=== PATIENT | female | born 1970 | race Caucasian/White ===

== ENCOUNTER 2022-07-02 11:26 | Outpatient (CLI) | payer BC, SELFPAY ==
[2022-07-24 10:44] LABS: Bacterial Vaginosis by TMA Negative; Candida glabrata by TMA Negative; Candida species by TMA Negative
[2022-07-24 10:45] LABS: Trichomonas vaginalis by TMA Negative
== END 2022-07-02 11:27 | disposition home or self-care (01) ==
LOC: NFLDREF 11:28
PROVIDERS: Visit Provider Registered Nurse
DX: N89.8 Other specified noninflammatory disorders of vagina (principal)
CPT/HCPCS: 81513; 87480; 87481; 87510; 87660; 87661

== ENCOUNTER 2022-08-12 18:35 | Outpatient (CLI) | payer BC, SELFPAY | END 2022-08-12 18:36 | disposition home or self-care (01) | PROVIDERS: Visit Provider Registered Nurse | DX: N94.819 Vulvodynia, unspecified (principal) | CPT/HCPCS: 87086; 87109 ==

== ENCOUNTER 2022-08-13 16:02 | Outpatient (CLI) | payer BC, SELFPAY ==
[2022-08-13 18:45] LABS: Chlamydia DNA Amplified* NOT DETECTED (No Detected); GC DNA Amplified* NOT DETECTED (No Detected)
== END 2022-08-13 16:03 | disposition home or self-care (01) ==
LOC: NFLDREF 16:02
PROVIDERS: Visit Provider Registered Nurse
DX: N94.818 Other vulvodynia (principal)
CPT/HCPCS: 87491; 87591

== ENCOUNTER 2022-09-30 11:03 | Outpatient (CLI) | payer BC, SELFPAY | END 2022-09-30 11:04 | disposition home or self-care (01) | PROVIDERS: PCP Family Medicine; Visit Provider Family Medicine | DX: M54.16 Radiculopathy, lumbar region (principal); M51.36 Other intervertebral disc degeneration, lumbar region | CPT/HCPCS: 62323; J0702; Q9966 ==

== ENCOUNTER 2023-11-24 07:30 | Outpatient (RCR) | payer BC, SELFPAY | END 2024-03-23 23:59 | disposition home or self-care (01) | PROVIDERS: PCP Family Medicine; Visit Provider Family Medicine | DX: M47.816 Spondylosis without myelopathy or radiculopathy, lumbar region (principal); M51.36 Other intervertebral disc degeneration, lumbar region; M54.16 Radiculopathy, lumbar region; M54.12 Radiculopathy, cervical region; M77.8 Other enthesopathies, not elsewhere classified; M54.50 Low back pain, unspecified; M62.81 Muscle weakness (generalized); M25.512 Pain in left shoulder; R27.8 Other lack of coordination; N94.10 Unspecified dyspareunia; R29.3 Abnormal posture; R10.2 Pelvic and perineal pain; R32 Unspecified urinary incontinence; M62.89 Other specified disorders of muscle; Z51.89 Encounter for other specified aftercare | CPT/HCPCS: 97110; 97112; 97140; 97161; 97162; 97164; 97535 ==

== ENCOUNTER 2024-11-29 07:30 | Outpatient (RCR) | payer BC, SELFPAY ==
--- OUTSIDE RECORDS SUMMARY | 2024-07-07 06:23 | XMS_ITS ---
Author Organization [facility] Address [address] [place] [address] Care Team Providers Care Scrap Crusher Name Role Phone None, No PCP Primary Care Provider Ant Hernandezbeto Harris Unavailable [phone] Results Component Value Reference Range Notes TESTOSTERONE, TOTAL, LC/MS/M S Reviewed date:05/26/2024 10:56:26 AM Interpretation: Performing Lab:[id number] [address], [address] Edil Lund MD,PhD Notes/Report: 0 TESTOSTERONE, TOTAL, MS 444 2-45 ng/dL For additional information, please refer to https://[email or web address].com/faq/TotalTestosteroneLCMS MS (This link is being provided for informational/educational purposes only.) (Note) This test was developed and its analytical performance characteristics have been determined by [employer]. It has not been cleared or approved by the FDA. This assay has been validated pursuant to the CLIA regulations and is used for clinical purposes. [facility] [address] [facility] [address] [facility] [id number] Edil Lund MD, PhD REASON FOR VISIT HRT Labs Medications Medication SIG (Take, Route, Frequency, Duration) Notes Start Date End Date Status Testosterone Cream 40mg/gm apply 1 click ( 10mg/dose) Unknown traMADol HCl 50 MG 1 tablet as needed Orally Once a day Unknown Naproxen 250 MG 1 tablet with food o r milk Orally Twice a day Unknown Magnesium 300 MG 1 capsule with a melony l Orally Once a day Unknown Multivitamin Adult - 1 tablet Orally Onc e a day Unknown Yuvafem 10 MCG 1 tablet Vaginal Two times a Week for 90 days 04/22/2024 Active Encounters Encounter Location Date Provider Diagnosis [facility] [address] [place] [address] 05/20/2024 Harris Feliz Menopausal and femal e climacteric states N95.1 Assessments Encounter Date Diagnosis (ICD Code) Assessment Notes Treatment Notes Treatment Clinical Notes Section Notes 05/20/2024 Menopausal and female climacteric states (ICD-10 - N95.1) Plan Of Treatment No Information Progress Notes * Celina KIMBLEiDOB: [birth year] (53 yo F)Acc No.[id number]:05/20/2024 Patient: Clarisse HARRIS Provider: DON Huntley :1970 A ge:53 Y S ex:Female Date:05/20/2024 Address:[address] [place] [address] [id number] Pcp:No PCP None Subjective: * Chief Complaints: * 1 . HRT Labs. * Medical History: * Medications: T aking Yuvafem 10 MCG Tablet 1 tablet Vaginal Two times a Week , Unknown Testosterone Cream , Notes to Pharmacist: 40mg/gm apply 1 click ( 10mg/dose), Unknown traMADol HCl 50 MG Tablet 1 tablet as needed Orally Once a day , Unknown Naproxen 250 MG Tablet 1 tablet with food or milk Orally Twice a day , Unknown Magnesium 300 MG Capsule 1 capsule with a meal Orally Once a day , Unknown Multivitamin Adult - Tablet 1 tablet Orally Once a day Objective: * Vitals: Assessment: * Assessment: 1. M enopausal and female climacteric states - N95.1 (Primary) Plan: * Treatment: Value Reference Range T ESTOSTERONE, TOTAL, 444 H 2-45 - ng/dL * Your total testosterone leve l is HIGH and above the range we desire to have you at on therapy (70-150). This is likely causing the symptoms you had called in about. I will call you today so we can discuss your results and options for therapy. Harris Feliz 05/26/2024 10:56:23 AM CDT > * Procedure Codes: 8 4403 ASSAY OF TOTAL TESTOSTERONE, Modifiers: 90 , 57052 VENIPUNCT, ROUTINE* * Images: Billing Information: * Visit Code: * Procedure Codes: 24183 ASSAY OF TOTAL TESTOSTERONE. Modifiers: 90 07848 VENIPUNCT, ROUTINE*. * Sign off status: Completed Addendum: * true * Provider: DON Huntley Date: Generated for Gabriella Shields/León on: 09/07/2023 06:23 AM [employer]PER[employer]OR [employer]
--- OUTSIDE RECORDS SUMMARY | 2024-07-07 06:23 | XMS_ITS ---
Author Organization [facility] Address [address] [place] [address] Care Team Providers Care Track Leader Name Role Phone None, No PCP Primary Care Provider Harris Burton Unavailable [phone] Allergies Allergen (clinical drug ingredient) Drug/Non Drug Allergy documented on EMR Reaction Allergy Type Onset Date Status Effexor Unknown Drug Allergy Active REASON FOR VISIT HRT f/u, LABS: testosterone 444, How are you feeling?, KDS,VP SECURITIES Medications Medication SIG (Take, Route, Frequency, Duration) Notes Start Date End Date Status Multivitamin Adult - 1 tablet Orally Onc e a day Active Yuvafem 10 MCG 1 tablet Vaginal Two times a Week for 90 days 04/22/2024 Active traMADol HCl 50 MG 1 tablet as needed Orally Once a day Active Testosterone Cream 40mg/gm apply 1 click ( 10mg/dose) Active Naproxen 250 MG 1 tablet with food o r milk Orally Twice a day Active Magnesium 300 MG 1 capsule with a melony l Orally Once a day Active Social History Tobacco Use: Social History Observation Description Date Details (start date - stop date) Never Smoker NA - NA Tobacco Use/Smoking Question Answer Notes Are you a nonsmoker Alcohol Screen (Audit-C) Question Answer Notes Did you have a drink contain ing alcohol in the past year? Yes How often did you have a dri nk containing alcohol in the past year? 2 to 3 times a week (3 points) How many drinks did you have on a typical day when you were drinking in the past year? 1 or 2 drinks (0 point) How often did you have 6 or more drinks on one occasion in the past year? Never (0 point) Points 3 Interpretation Positive Problems Problem Type SNOMED Code ICD Code Onset Dates Problem Status W/U Status Risk Notes Problem Pain in female genitalia on intercourse (34636193) Dyspareunia in female (N94.10) Active confirmed Encounters Encounter Location Date Provider Diagnosis [facility] [address] [place] [address] 05/30/2024 Harris Feliz Menopausal and femal e climacteric states N95.1 ; Fatigue R53.83 ; Vaginal atrophy N95.2 ; Dyspareunia in female N94.10 and Elevated testosterone level in female R79.89 Assessments Encounter Date Diagnosis (ICD Code) Assessment Notes Treatment Notes Treatment Clinical Notes Section Notes 05/30/2024 Menopausal and female climacteric states (ICD-10 - N95.1) HRT with concerns for high testosterone with labial application of Tcream. Plans to go back to 10mg/day behind knee application with Tcream. Desires to continue on current therapies at this time Will call when refill needed of Tcream and what dose she desires Risks vs. benefits of ongoing HRT reviewed today. Contraindications to continue therapy reviewed including breast cancer, VTE, CVA, and/or NM. Mammogram annually is recommended for ongoing therapy. Mammogram up to date Plan repeat labs (estradiol, FSH, total testosterone) and HRT follow up in 6 months, sooner if any concerns 05/30/2024 Fatigue (ICD-10 - R53.83) 05/30/2024 Vaginal atrophy (ICD-10 - N95.2) Plan Yuvafem tabs once weekly due to breast pain with twice weekly insertions . 05/30/2024 Dyspareunia in female (ICD-10 - N94.10) 05/30/2024 Elevated testosterone level in female (ICD-10 - R79.89) HRT labs reviewed. High testosterone associated with labial application of Tcream 10mg/day. Desires to go back to using behind her knee daily in AM. Has left over therapy from previous prescription. Aware 2 clicks today needed with 20mg/gm concentration tube and 1 click with 40mg/gm concentration tube. She wants to continue on this and see how she does. She can let me know when she is needing a refill and what dose she feels best with 05/30/2024 Other This visit was conducted with the use of audio and video telecommunications system that permits real time communication between the patient and provider. Patient consent for virtual visit was obtained. Originating site: [facility] location Distant site: pt in parked car Start time: 1445 Stop time: 1507 31 min. spent in chart prep, reviewing previous notes, lab results, current HRT therapies, answering questions/concerns, and discussing ongiong therapy options, writing orders, along with time spent documenting today's visit note. Plan Of Treatment Treatment Notes Assessment Notes Menopausal and female climacteric states HRT with concerns for high testosterone with labial application of Tcream. Plans to go back to 10mg/day behind knee application with Tcream. Desires to continue on current therapies at this time Will call when refill needed of Tcream and what dose she desires Risks vs. benefits of ongoing HRT reviewed today. Contraindications to continue therapy reviewed including breast cancer, VTE, CVA, and/or NM. Mammogram annually is recommended for ongoing therapy. Mammogram up to date Plan repeat labs (estradiol, FSH, total testosterone) and HRT follow up in 6 months, sooner if any concerns Vaginal atrophy Plan Yuvafem tabs once weekly due to breast pain with twice weekly insertions . Elevated testosterone level in female HRT labs reviewed. High testosterone associated with labial application of Tcream 10mg/day. Desires to go back to using behind her knee daily in AM. Has left over therapy from previous prescription. Aware 2 clicks today needed with 20mg/gm concentration tube and 1 click with 40mg/gm concentration tube. She wants to continue on this and see how she does. She can let me know when she is needing a refill and what dose she feels best with Other This visit was conducted with the use of audio and video telecommunications system that permits real time communication between the patient and provider. Patient consent for virtual visit was obtained. Originating site: [facility] location Distant site: pt in parked car Start time: 1445 Stop time: 1507 31 min. spent in chart prep, reviewing previous notes, lab results, current HRT therapies, answering questions/concerns, and discussing ongiong therapy options, writing orders, along with time spent documenting today's visit note. Next Appt Details Follow Up: 6 Months, Reason: HRT follow up Progress Notes * Carmencita KIMBLE: [birth year] (53 yo F)Acc No.[id number]:05/30/2024 Patient: Clarisse HARRIS Provider: DON Huntley :1970 A ge:53 Y S ex:Female Date:05/30/2024 Address:[address] [place], [place] [address]-[id number] Pcp:No PCP None Subjective: * Chief Complaints: * 1 . HRT f/u. 2. LABS: testosterone 444. 3. How are you feeling?. 4. KDS,VP SECURITIES. * HPI: G eneral: Patient presents today for a telemedicine visit. Patient gives permission to be treated with (tele/audio communication) or (by telephone.). * General: Clarisse is a 53 year old female here today for a HRT follow up. She is currently using the following HRT therapies: transdermal compounded testosterone cream 10mg/0.25gm/1clicks/day. Instructed to apply between labia at last visit. Yuvafem 10mcg vaginal tablets twice weekly Primary symptoms for initiation of HRT: thinning hair, brittle nails, low energy, sensation of cold, weight gain, low libido, constipation, irritability/mood swings, swollen ankles, unexplained tingling/numbness, body aches, plantar fasciitis, waking unrefreshed, sleeping problems, and difficulty concentrating/memory loss. At this time she reports labial application of testosterone cream caused strong libido, clitoral enlargement that was uncomfortable, irritability and agitation so she stopped therapy. Took about 2 days before sensation decreased. Would prefer to go back to using Tcream to back of knee. Has 20mg/gm concentration and 40mg/gm concentration of Tcream. Did note bothersome breast pain and swelling with twice weekly Yuvafem, but did noticed less discomfort during intercourse. Has opted to use once weekly ideally a few days before she likely will be sexually active. Last Mammogram: 12/17/23, negative Last Pap: 0 09/10/2023 neg/neg hrHPV Contraception: Bilateral Tubal Ligation PMH: reviewed, no concerns or contraindications for continuing HRT identified. History notable for migraines, depression/anxiety, lumbago, vulvodynia (managed with pelvic floor PT and nerve injection in her back). * ROS: A ll Other Systems: Review of Systems (ROS) [facility] for details. * Medical History: M igraines, Depression/anxiety, Lumbago, Vulvodynia. 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 B irth Control: B ilateral Tubal Ligation. S exual Activity C urrently sexually active, . S exually Tranmitted Disease (STD) N one. A bnormal Pap Smear N ever Had One. * OB History: n umber of 2 . G PAL: G [id number]. M iscarriage(s) 1 . T otal living children 1 . P regnancy # 1: 1 997, Miscarriage (SAB). P regnancy # 2: 2 004, male, at 37 weeks, no complications. * Surgical History: b ilateral tubal ligation , uterine ablation . * Hospitalization/Major Diagno stic Procedure: c hild x 1 . * Family History: Diabetes - grandmother (unspecified) Stroke - grandmother (unspecified) Heart Attack - maternal and paternal grandfather. * Social History: T obacco Use: T obacco Use/Smoking A re you a n onsmoker D rugs/Alcohol: D rugs H ave you used drugs other than those for medical reasons in the past 12 months? N o Alcohol Screen (Audit-C) D id you have a drink containing alcohol in the past year? Y es H ow often did you have a drink containing alcohol in the past year? 2 to 3 times a week (3 points) H ow many drinks did you have on a typical day when you were drinking in the past year? 1 or 2 drinks (0 point) H ow often did you have 6 or more drinks on one occasion in the past year? N ever (0 point) P oints 3 I nterpretation P ositive Caffeine I ntake: 1 -2 cups per day Do you smoke marijuana?: Denies. Do you drink alcohol?: No. M iscellaneous: E xercise: yes, walking - 2 times per week. Marital status: . * Medications: T aking Yuvafem 10 MCG Tablet 1 tablet Vaginal Two times a Week , Taking Testosterone Cream , Notes to Pharmacist: 40mg/gm apply 1 click ( 10mg/dose), Taking traMADol HCl 50 MG Tablet 1 tablet as needed Orally Once a day , Taking Naproxen 250 MG Tablet 1 tablet with food or milk Orally Twice a day , Taking Magnesium 300 MG Capsule 1 capsule with a meal Orally Once a day , Taking Multivitamin Adult - Tablet 1 tablet Orally Once a day , Medication List reviewed and reconciled with the patient * Allergies: E ffexor. Objective: * Vitals: * P ast Orders: L ab:TESTOSTERONE, TOTAL, LC/MS/MS (Order Date - 05/20/2024) (Collection Date & Time - 05/20/2024 08:30 AM) Value Reference Range TESTOSTERONE, TOTAL, 444 H 2-45 - ng/dL * Examination: * General Examination: PSYCH: alert, oriented, judgement and insight good. ? Assessment: * Assessment: 1. M enopausal and female climacteric states - N95.1 (Primary) 2 . F atigue - R53.83 3 . V aginal atrophy - N95.2 4 . D yspareunia in female - N94.10 5 . E levated testosterone level in female - R79.89 ? Plan: * Treatment: 2. V aginal atrophy Notes: Plan Yuvafem tabs once weekly due to breast pain with twice weekly insertions . 3. E levated testosterone level in female Notes: HRT labs reviewed. High testosterone associated with labial application of Tcream 10mg/day. Desires to go back to using behind her knee daily in AM. Has left over therapy from previous prescription. Aware 2 clicks today needed with 20mg/gm concentration tube and 1 click with 40mg/gm concentration tube. She wants to continue on this and see how she does. She can let me know when she is needing a refill and what dose she feels best with 4. O thers Notes: This visit was conducted with the use of audio and video telecommunications system that permits real time communication between the patient and provider. Patient consent for virtual visit was obtained. Originating site: [facility] location Distant site: pt in [employer] car Start time: 1446 Stop time: 1507 31 min. spent in chart prep, reviewing previous notes, lab results, current HRT therapies, answering questions/concerns, and discussing ongiong therapy options, writing orders, along with time spent documenting today's visit note. * Preventive Medicine: YOUR PREVENTIVE WELLNESS PLAN: B reast Cancer Screening (Mammogram): My last mammogram was done on: 0 12/17/2023 Negative C ervical Cancer Screening (Pap Smear): My last Pap smear was done on: 0 09/10/2023 NILM HPV+ O steoporosis Screening (Bone Density Measurement): My last bone density was done on: N ever, Under 65yr C olorectal Cancer Screening: Last Done Colonoscopy P t. decline to specify D epression Screening: Screening for depression was last done on: 0 03/11/2023 * Follow Up: 6 Months (Reason: HRT follow up) * Images: Billing Information: * Visit Code: 43383 Office Visit, Est Pt., Level 4. Modifiers: 95 * Procedure Codes: * MENTAL METAL FABRICATOR APPRENTICE Sign off status: Completed true * Provider: DON Huntley Date: 07/30/2023 Generated for Gabriella sanchez/Reema/León on: 09/07/2023 06:23 AM ORNAMENTAL METAL FABRICATOR APPRENTICE History and Physical Notes * HPI (History of Present Illness) Category Sub-Category Detail Notes Category Not es *General Clarisse is a 53 year old female here today for a HRT follow up. She is currently using the following HRT therapies: transdermal compounded testosterone cream 10mg/0.25gm/1clicks/day. Instructed to apply between labia at last visit. Yuvafem 10mcg vaginal tablets twice weekly Primary symptoms for initiation of HRT: thinning hair, brittle nails, low energy, sensation of cold, weight gain, low libido, constipation, irritability/mood swings, swollen ankles, unexplained tingling/numbness, body aches, plantar fasciitis, waking unrefreshed, sleeping problems, and difficulty concentrating/memory loss. At this time she reports labial application of testosterone cream caused strong libido, clitoral enlargement that was uncomfortable, irritability and agitation so she stopped therapy. Took about 2 days before sensation decreased. Would prefer to go back to using Tcream to back of knee. Has 20mg/gm concentration and 40mg/gm concentration of Tcream. Did note bothersome breast pain and swelling with twice weekly Yuvafem, but did noticed less discomfort during intercourse. Has opted to use once weekly ideally a few days before she likely will be sexually active. Last Mammogram: 12/17/23, negative Last Pap: 09/10/2023 neg/neg hrHPV Contraception: Bilateral Tubal Ligation PMH: reviewed, no concerns or contraindications for continuing HRT identified. History notable for migraines, depression/anxiety, lumbago, vulvodynia (managed with pelvic floor PT and nerve injection in her back) General Patient present s today for a telemedicine visit. Patient gives permission to be treated with (tele/audio communication) or (by telephone.) Examination Category Sub-Category Detail Notes Category Not es *General Examination PSYCH: alert, orie nted, judgement and insight good
== END 2025-03-29 23:59 | disposition home or self-care (01) ==
PROVIDERS: PCP Family Medicine; Visit Provider Family Medicine
DX: M54.16 Radiculopathy, lumbar region (principal); M47.816 Spondylosis without myelopathy or radiculopathy, lumbar region; M51.36 Other intervertebral disc degeneration, lumbar region; M25.559 Pain in unspecified hip; R10.2 Pelvic and perineal pain; N94.10 Unspecified dyspareunia; R27.8 Other lack of coordination; Z51.89 Encounter for other specified aftercare
CPT/HCPCS: 97110; 97112; 97140; 97161; 97535